=== PATIENT | male | born 1965 | race Caucasian/White ===

== ENCOUNTER → 2024-09-05 | Outpatient (CLI) | payer SELFPAY | END | disposition home or self-care (01) | PROVIDERS: Referring Provider Physician Assistant; Visit Provider Physician Assistant | DX: R30.0 Dysuria (principal) | CPT/HCPCS: 87086 ==

== ENCOUNTER 2025-06-29 07:31 | Emergency (ER) | payer MEDICAID, SELFPAY ==
[2025-06-29 07:33] VITALS: BP 180/104; PULSE 76; RESP 16; TEMP 36.7; O2SAT 98; BMI 28.4
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
[2025-06-29 08:44] VITALS: BP 166/94; PULSE 73; RESP 16; TEMP 36.7; O2SAT 98
== END 2025-06-29 08:48 | disposition home or self-care (01) ==
PROVIDERS: Emergency Provider Surgery; PCP Student in an Organized Health Care Education/Training Program; Visit Provider Surgery
DX: S00.83XA Contusion of other part of head, initial encounter (principal); Y04.0XXA Assault by unarmed brawl or fight, initial encounter; G44.319 Acute post-traumatic headache, not intractable; F17.210 Nicotine dependence, cigarettes, uncomplicated
CPT/HCPCS: 70450; 99283